=== PATIENT | female | born 1950 | race African-American/Black ===

== ENCOUNTER 2022-05-23 17:28 | Inpatient (IN) | payer MEDICARE, MEDICAID ==
[~2022-05-23] VITALS: Ht 160 cm; Wt 36.3 kg
[2022-05-23] MEDS ORDERED: SODIUM CHLORIDE 0.9% 1,000 ML IVB ONE (18:15)
[2022-05-23 18:48] LABS: Basophils # (auto) 0 10 ^3/uL (0-0.2); Basophils % (auto) 0.1 % (0.0-2.0); Eosinophils # (auto) 0 10 ^3/uL (0-0.8); Hematocrit 38.7 % (36.0-46.0); Hemoglobin 12.5 g/dL (12.2-16.2); Lymphocytes # (auto) 0.6 10 ^3/uL (0.4-5.4); Lymphocytes % (auto) 5.3 % (10.0-50.0); Mean Corpuscular Hemoglobin 30.7 pg (28.0-32.0); Mean Corpuscular Hgb Conc. 32.2 g/dL (32.0-36.0); Mean Corpuscular Volume 95.1 fL (80.0-100.0); Monocytes # (auto) 0.5 10 ^3/uL (0-1.3); Monocytes % (auto) 5.2 % (0.0-12.0); Neutrophils # (auto) 9.5 10 ^3/uL (1.6-8.6); Neutrophils % (auto) 89.4 % (37.0-80.0); Red Blood Cells 4.07 10^6/uL (4.0-5.20); Red Cell Distribution Width 12.6 % (11.8-14.3); White Blood Cell 10.6 10^3/uL (4.4-10.8)
[2022-05-23 18:59] LABS: Albumin 3.7 g/dL (3.4-5.0); Calcium 8.8 mg/dL (8.5-10.1); Potassium 3.6 mmol/L (3.5-5.1)
[2022-05-23 19:02] LABS: Bilirubin, Total 0.2 mg/dL (0.2-1.0); Total Protein 7.5 g/dL (6.4-8.2)
[2022-05-23 19:04] LABS: Lactic Acid w/Reflex 5.5 mmol/L (0.4-2.0)
[2022-05-23 19:07] LABS: Carbamazepine (Tegretol) 6.3 ug/mL (4-12); Phenytoin (Dilantin) 14.3 ug/mL (10-20)
[2022-05-23] MEDS ORDERED: SODIUM CHLORIDE 0.9% 1,000 ML IV ONE (20:30)
[2022-05-23] MEDS ORDERED: AZITHROMYCIN 500MG/ 250ML 250 ML IV ONE (20:30)
[2022-05-23] MEDS ORDERED: cefTRIAXone 1GM/50ML D5W 50 ML IV ONE (20:30)
[2022-05-23] MEDS ORDERED: DOCUSATE SOD 100 MG CAP PO PRN (22:30)
[2022-05-23] MEDS ORDERED: HYDROcodone-ACET 5/325MG TAB PO PRN (22:30)
[2022-05-23] MEDS ORDERED: ONDANSETRON HCL 4 MG/2 ML VIAL IV PRN (22:30)
[2022-05-23] MEDS ORDERED: ACETAMINOPHEN 325 MG TAB PO PRN (22:30)
[2022-05-24] MEDS ORDERED: NITROGLYCERIN 0.4 MG SL TAB SL PRN
[2022-05-24] MEDS ORDERED: MORPHINE SULFATE INJ 2 MG/ml SYRG IV PRN
[2022-05-24] MEDS: SODIUM CHLOR 0.9% PF (SALINE LOCK) 10ML VIAL/SYR IV SCH ×3 (06:00→21:42)
[2022-05-24 08:13] LABS: Basophils # (auto) 0 10 ^3/uL (0-0.2); Basophils % (auto) 0.4 % (0.0-2.0); Eosinophils # (auto) 0 10 ^3/uL (0-0.8); Hematocrit 34.5 % (36.0-46.0); Hemoglobin 11.3 g/dL (12.2-16.2); Lymphocytes # (auto) 1.8 10 ^3/uL (0.4-5.4); Lymphocytes % (auto) 30.6 % (10.0-50.0); Mean Corpuscular Hemoglobin 31.2 pg (28.0-32.0); Mean Corpuscular Hgb Conc. 32.8 g/dL (32.0-36.0); Mean Corpuscular Volume 95.3 fL (80.0-100.0); Monocytes # (auto) 0.6 10 ^3/uL (0-1.3); Monocytes % (auto) 9.8 % (0.0-12.0); Neutrophils # (auto) 3.5 10 ^3/uL (1.6-8.6); Neutrophils % (auto) 59.2 % (37.0-80.0); Nucleated Red Blood Cells % 0.1 %; Red Blood Cells 3.62 10^6/uL (4.0-5.20); Red Cell Distribution Width 12.7 % (11.8-14.3)
[2022-05-24 08:29] LABS: Albumin 2.9 g/dL (3.4-5.0); Calcium 7.7 mg/dL (8.5-10.1); Potassium 3.2 mmol/L (3.5-5.1)
[2022-05-24 08:34] LABS: Bilirubin, Total 0.2 mg/dL (0.2-1.0); Total Protein 6.3 g/dL (6.4-8.2)
[2022-05-24] MEDS ORDERED: POTASSIUM EFFERVESENT TAB 25 MEQ GT ONE (11:00)
[2022-05-24] MEDS ORDERED: cefTRIAXone 1GM/50ML D5W 50 ML IV ONE (11:00)
[2022-05-24] MEDS: Ensure HIGH Protein Vanilla 8oz Bottle PO SCH ×2 (12:00→18:00)
[2022-05-24] MEDS: FAMOTIDINE (10MG/ML) 2ML VL IV SCH (12:05)
[2022-05-24] MEDS: ENOXAPARIN SOD 40 MG/0.4 ML SYRINGE SC SCH (12:05)
[2022-05-24] MEDS ORDERED: CARB200T4 PO (12:39)
[2022-05-24] MEDS ORDERED: PHE100C PO (12:39)
[2022-05-24 13:41] LABS: Urine Amorphous Crystal MOD /hpf (None Seen); Urine Bacteria FEW /hpf (None Seen); Urine Blood Negative /uL (Negative); Urine Mucus FEW (None Seen); Urine Specific Gravity 1.009 (1.001-1.035); Urine WBC 9 /hpf (0 - 5)
[2022-05-24] MEDS ORDERED: cefTRIAXone 1GM/50ML D5W 50 ML IV SCH (22:00)
[2022-05-25 04:54] VITALS: BP 120/67
[2022-05-25] MEDS: SODIUM CHLOR 0.9% PF (SALINE LOCK) 10ML VIAL/SYR IV SCH ×3 (05:50→21:40)
[2022-05-25 06:19] LABS: Basophils # (auto) 0 10 ^3/uL (0-0.2); Basophils % (auto) 0.2 % (0.0-2.0); Eosinophils # (auto) 0 10 ^3/uL (0-0.8); Eosinophils % (auto) 0.1 % (0.0-7.0); Hematocrit 33.6 % (36.0-46.0); Hemoglobin 11.2 g/dL (12.2-16.2); Lymphocytes # (auto) 1.6 10 ^3/uL (0.4-5.4); Lymphocytes % (auto) 33.7 % (10.0-50.0); Mean Corpuscular Hemoglobin 31.9 pg (28.0-32.0); Mean Corpuscular Hgb Conc. 33.4 g/dL (32.0-36.0); Mean Corpuscular Volume 95.5 fL (80.0-100.0); Monocytes # (auto) 0.4 10 ^3/uL (0-1.3); Neutrophils # (auto) 2.8 10 ^3/uL (1.6-8.6); Nucleated Red Blood Cells % 0.2 %; Red Blood Cells 3.52 10^6/uL (4.0-5.20); Red Cell Distribution Width 12.8 % (11.8-14.3); White Blood Cell 4.8 10^3/uL (4.4-10.8)
[2022-05-25 06:44] LABS: BUN/Creatinine Ratio 31.8; Bilirubin, Total 0.4 mg/dL (0.2-1.0); Calcium 8.5 mg/dL (8.5-10.1); Magnesium 2.1 mg/dL (1.6-2.6); Total Protein 6.5 g/dL (6.4-8.2)
[2022-05-25] MEDS: Ensure HIGH Protein Vanilla 8oz Bottle PO SCH (08:00)
[2022-05-25 09:00] VITALS: BP 122/56
[2022-05-25] MEDS: FAMOTIDINE (10MG/ML) 2ML VL IV SCH (11:28)
[2022-05-25] MEDS: ENOXAPARIN SOD 40 MG/0.4 ML SYRINGE SC SCH (11:28)
[2022-05-25] MEDS: cefTRIAXone 1GM/50ML D5W 50 ML IV SCH (12:19)
[2022-05-25 13:00] VITALS: BP 111/47
[2022-05-25] MEDS: Ensure Enlive Strawberry 8oz Bottle PO SCH ×3 (14:00→21:40)
[2022-05-25 17:00] VITALS: BP 106/64
[2022-05-25] MEDS ORDERED: MIDAZOLAM HCL 2MG/2ML 2ml VIAL (1mg/ml) IV PRN (17:45)
[2022-05-25] MEDS ORDERED: carBAMazepine 200 MG/10 ML Ud ORAL Susp GT SCH (17:45)
[2022-05-25] MEDS ORDERED: CARBAMAZEPINE 100 MG/5 ML GT SCH (18:45)
[2022-05-25] MEDS: CARBAMAZEPINE 100 MG/5 ML GT SCH (19:05)
[2022-05-25] MEDS: PHENYTOIN SODIUM 100 MG CAP PO SCH (21:40)
[2022-05-25 22:00] VITALS: BP 117/65
[2022-05-26] MEDS: CARBAMAZEPINE 100 MG/5 ML GT SCH ×2 (03:17→10:45)
[2022-05-26 05:00] VITALS: BP 113/41
[2022-05-26] MEDS: Ensure Enlive Strawberry 8oz Bottle PO SCH ×2 (05:36→09:40)
[2022-05-26] MEDS: SODIUM CHLOR 0.9% PF (SALINE LOCK) 10ML VIAL/SYR IV SCH (05:36)
[2022-05-26 09:00] VITALS: BP 132/71
[2022-05-26] MEDS: FAMOTIDINE (10MG/ML) 2ML VL IV SCH (09:21)
[2022-05-26] MEDS: PHENYTOIN SODIUM 100 MG CAP PO SCH (09:21)
[2022-05-26] MEDS: cefTRIAXone 1GM/50ML D5W 50 ML IV SCH (09:21)
[2022-05-26] MEDS: ENOXAPARIN SOD 40 MG/0.4 ML SYRINGE SC SCH (09:22)
[2022-05-26] MEDS ORDERED: LEVO500T31 PO (10:57)
[2022-05-26] MEDS ORDERED: carBAMazepine 200 MG/10 ML Ud ORAL Susp GT SCH (11:00)
[2022-05-26 13:00] VITALS: BP 148/72
== END 2022-05-26 14:18 | disposition home or self-care (01) | DRG 871 ==
LOC: EDBD 17:28 → ER 17:28 → OVERFLOW 05-24 05:10 → EAST 05-24 09:42
PROVIDERS: ADMIT Nurse Practitioner Family; ATTEND Internal Medicine
DX: A41.9 Sepsis, unspecified organism (principal); G93.41 Metabolic encephalopathy; N39.0 Urinary tract infection, site not specified; G40.209 Localization-related (focal) (partial) symptomatic epilepsy and epileptic syndromes with complex partial seizures, not intractable, without status epilepticus; G80.9 Cerebral palsy, unspecified; Z20.822 Contact with and (suspected) exposure to COVID-19; G40.409 Other generalized epilepsy and epileptic syndromes, not intractable, without status epilepticus; F79 Unspecified intellectual disabilities; Z74.01 Bed confinement status; Z82.0 Family history of epilepsy and other diseases of the nervous system; Z93.1 Gastrostomy status
CPT/HCPCS: 36415; 70450; 71045; 80053; 80156; 80185; 81001; 83605; 83735; 84443; 85025; 87040; 93005; 95819; 96361; 96365; 99291; G0378; J0696; J3490; J7060